=== PATIENT | male | born 1975 | race Caucasian/White ===

== ENCOUNTER 2018-09-22 10:26 | Emergency (ER) | payer OTHER ==
[2018-09-22 10:37] VITALS: BMI 28.1
[2018-09-22 10:39] VITALS: O2SAT 99
[2018-09-22 12:04] VITALS: BP 119/69; PULSE 77; RESP 20; TEMP 98.5
--- NOTE | 2018-09-22 12:09 | RAD ---
Date of service: 09/22/2018 PROCEDURE: Bilateral knee radiographs. Right tibia fibula radiographs. HISTORY: s/p fall r/o fx COMPARISON: None available. FINDINGS: BONES: Right Knee: No acute displaced fracture identified. Left Knee: No acute displaced fracture identified. JOINTS: Right Knee: No dislocation. No significant osteoarthritis. Left knee: No dislocation. No significant osteoarthritis. SOFT TISSUES: Right Knee: No evidence of radiopaque foreign body. Left Knee: No evidence of radiopaque foreign body. JOINT EFFUSION: Right Knee: No significant joint effusion identified. Left Knee: No significant joint effusion identified. OTHER FINDINGS: None. IMPRESSION: No acute displaced fracture. Mild joint space narrowing of the medial and lateral compartments.
--- NOTE | 2018-09-22 14:56 | C.PDOC ---
History Of Present Illness 43 year old male presents to the ED for evaluation of bilateral knee pain and right lower extremity pain which began today. Patient states he was working on a scaffold (around 6 feet above the ground) when the scaffold gave way, causing him to slide down. Patient was not wearing a safety harness at the time. Patient notes he had just stepped onto the scaffold prior to the incident. He denies head injury, LOC, back pain, extremity numbness/weakness. Time Seen by Provider: 09/22/18 10:42 Chief Complaint (Nursing): Lower Extremity Problem/Injury History Per: Patient History/Exam Limitations: no limitations Onset/Duration Of Symptoms: Hrs Current Symptoms Are (Timing): Still Present Additional History Per: Patient - Knee Description Of Injury: Fell - Ankle/Foot Description Of Injury: Fell Past Medical History Reviewed: Historical Data, Nursing Documentation, Vital Signs Vital Signs: Last Vital Signs Temp 98.5 F 09/22/18 12:03 Pulse 77 09/22/18 12:03 Resp 20 09/22/18 12:03 BP 119/69 09/22/18 12:03 Pulse Ox 99 09/22/18 12:03 - Medical History PMH: No Chronic Diseases Surgical History: No Surg Hx Family History: States: Unknown Family Hx - Social History Hx Alcohol Use: No Hx Substance Use: No - Immunization History Hx Tetanus Toxoid Vaccination: No Hx Influenza Vaccination: No Hx Pneumococcal Vaccination: No Review Of Systems Musculoskeletal: Positive for: Leg Pain (right ), Other (bilateral knee pain ) Neurological: Negative for: Weakness, Numbness, Other (head injury, LOC ) Physical Exam - Physical Exam Appears: Non-toxic, No Acute Distress Skin: Normal Color, Warm, Dry, Other (contusion to the anterior mid-shaft of the right tibia ) Head: Atraumatic, Normacephalic Eye(s): bilateral: Normal Inspection Neck: Normal ROM, Supple Chest: Symmetrical, No Deformity, No Tenderness Extremity: Normal ROM, Tenderness (to the anterior mid-shaft of the right tibia ), Capillary Refill (less than 2 seconds ), No Deformity, Other (no tenderness to bilateral knees ) Neurological/Psych: Oriented x3, Normal Speech, Normal Cognition, Normal Sensation Gait: Steady ED Course And Treatment O2 Sat by Pulse Oximetry: 99 (on RA ) Pulse Ox Interpretation: Normal - Other Rad tibia/fibula XR X-Ray: Viewed By Me, Read By Radiologist Interpretation: ADDENDUM: Please note that right tibia fibula radiographs were reviewed. No acute displaced fracture or dislocation. Soft tissue swelling at the mid shaft anteriorly. No evidence of radiopaque foreign body. Case discussed with Dr. Cadena on 09/22/18 at 12:30 p.m. [ Addendum Report Added by Nanci Nguyen MD at 09/22/2018 12:30:53 ]. Date of service: 09/22/2018. PROCEDURE: Bilateral knee radiographs. Right tibia fibula radiographs. HISTORY: s/p fall r/o fx. COMPARISON: None available. FINDINGS: BONES: Right Knee: No acute displaced fracture identified. Left Knee: No acute displaced fracture identified. JOINTS: Right Knee: No dislocation. No significant osteoarthritis. Left knee: No dislocation. No significant osteoarthritis. SOFT TISSUES: Right Knee: No evidence of radiopaque foreign body. Left Knee: No evidence of radiopaque foreign body. JOINT EFFUSION: Right Knee: No significant joint effusion identified. Left Knee: No significant joint effusion identified. OTHER FINDINGS: None. IMPRESSION: No acute displaced fracture. Mild joint space narrowing of the medial and lateral compartments. bilateral knee XR X-Ray: Viewed By Me, Read By Radiologist Interpretation: ADDENDUM: Please note that right tibia fibula radiographs were reviewed. No acute displaced fracture or dislocation. Soft tissue swelling at the mid shaft anteriorly. No evidence of radiopaque foreign body. Case discussed with Dr. Cadena on 09/22/18 at 12:30 p.m. [ Addendum Report Added by Nanci Nguyen MD at 09/22/2018 12:30:53 ]. Date of service: 09/22/2018. PROCEDURE: Bilateral knee radiographs. Right tibia fibula radiographs. HISTORY: s/p fall r/o fx. COMPARISON: None available. FINDINGS: BONES: Right Knee: No acute displaced fracture identified. Left Knee: No acute displaced fracture identified. JOINTS: Right Knee: No dislocation. No significant osteoarthritis. Left knee: No dislocation. No significant osteoarthritis. SOFT TISSUES: Right Knee: No evidence of radiopaque foreign body. Left Knee: No evidence of radiopaque foreign body. JOINT EFFUSION: Right Knee: No significant joint effusion identified. Left Knee: No significant joint effusion identified. OTHER FINDINGS: None. IMPRESSION: No acute displaced fracture. Mild joint space narrowing of the medial and lateral compartments. Medical Decision Making Medical Decision Making: Impression: 43 year old male with bilateral knee and right lower extremity pain Plan: * right tibia/fibula XR * bilateral knee XR * reassess and disposition Progress: Right tibia/fibula XR and bilateral knee XR ordered and reviewed. On reassessment, patient is resting comfortably, showing no signs of distress and is stable for discharge. Patient is advised to follow up with PMD within 1-2 days for further evaluation. Disposition - Disposition Referrals: [facility] [Outside] [facility] [Outside] Disposition: HOME/ ROUTINE Disposition Time: 12:30 Condition: GOOD Additional Instructions: SLIME MOY, thank you for letting us take care of you today. Your provider was Jonh Cadena DO and you were treated for KNEE PAIN. The emergency medical care you received today was directed at your acute symptoms. If you were prescribed any medication, please fill it and take as directed. It may take several days for your symptoms to resolve. Return to the Emergency Department if your symptoms worsen, do not improve, or if you have any other problems. Please contact your doctor or call one of the physicians/clinics you have been referred to that are listed on the Patient Visit Information form that is included in your discharge packet. Bring any paperwork you were given at discharge with you along with any medications you are taking to your follow up visit. Our treatment cannot replace ongoing medical care by a primary care provider outside of the emergency department. Thank you for allowing the [facility] team to be part of your care today. Follow up with the clinic next week for re-evaluation and further management. Prescriptions: Ibuprofen [Motrin] 600 mg PO Q6 PRN #20 tab PRN Reason: Pain, Moderate (4-7) Instructions: Muscle and Bone Pain (DC) Forms: [employer] (Icelandic) - Clinical Impression Clinical Impression: Musculoskeletal pain - Scribe Statement The provider has reviewed the documentation as recorded by the Scribe (Shannan Knapp) Provider Attestation: All medical record entries made by the Scribe were at my direction and personal ly dictated by me. I have reviewed the chart and agree that the record accurately reflects my personal performance of the history, physical exam, medical decision making, and the department course for this patient. I have also personally directed, reviewed, and agree with the discharge instructions and disposition.
== END 2018-09-22 12:43 | disposition home or self-care (01) ==
LOC: C.ER 10:26
DX: M79.18 Myalgia, other site (principal)